=== PATIENT | male | born 1980 | race Caucasian/White ===

== ENCOUNTER 2017-11-09 19:51 | Emergency (ER) | payer OTHER, SELFPAY ==
[2017-11-09 19:53] VITALS: BP 117/72; PULSE 68; RESP 17; TEMP 36; O2SAT 95; BMI 29.0
--- NOTE | 2017-11-09 20:19 | ED.DCSUM_ITS ---
- ER Visit Summary Date of Service: 11/09/17 Chief Complaint: Occupational exposure History of Present Illness: The patient is a 36 M who presents for occupational exposure. 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 While in the surgery today he brushed against a forcep. He did not think anything of it at the time but later realized that he did have an abrasion on his left hand. No active bleeding. Currently he has no other complaints. Physical Examination: Afebrile vitals unremarkable Patient has a superficial abrasion of the left hand between the fourth and fifth digits no active bleeding Test Results: Hepatitis studies and HIV have been drawn. Emergency Department Course and Treatment: No exposure protocol including hepatitis and HIV testing was drawn. Treatment Plan: [] Disposition: Discharge Impression: Occupational exposure Hand abrasion This note was generated with [employer] dictation software. It may contain incorrect words, spelling, and punctuation that were not noted in review of the chart prior to signing ED Disposition - Plan for ED Patient: Chief Complaint: Occup Expose Referrals: Delonte Fink MD [Primary Care Provider] -
--- NOTE | 2017-11-09 20:19 | DCINST.ED_ITS ---
ED Disposition - Plan for ED Patient: Chief Complaint: Occup Expose Instructions: ED Body Fluid Exp HC Worker Referrals: Delonte Fink MD [Primary Care Provider] -
--- NOTE | 2017-11-09 20:20 | DCINST.ED_ITS ---
ED Disposition - Plan for ED Patient: Chief Complaint: Occup Expose Instructions: ED Body Fluid Exp HC Worker Referrals: Delonte Fink MD [Primary Care Provider] - [facility] [GROUP OF PHYSICIANS] -
[2017-11-09 22:14] LABS: HIV - WCH Non-Reactive (Nonreactive)
[2017-11-12 08:51] LABS: HEPATITIS B SURFACE AG Negative (Negative); Hep B Surface Antibodies EMP Reactive (.); Hep C Antibodies <0.1 s/co ratio (0.0-0.9)
== END 2017-11-09 20:36 | disposition home or self-care (01) ==
LOC: ED 20:28
PROVIDERS: Emergency Provider Emergency Medicine; Family Provider Family Medicine; PCP Family Medicine
DX: Z57.8 Occupational exposure to other risk factors (principal); S60.512A Abrasion of left hand, initial encounter
CPT/HCPCS: 36415; 86703; 86803; 87340; 99282

== ENCOUNTER 2018-11-09 17:26 | Emergency (ER) | payer OTHER, SELFPAY ==
[2018-11-09 17:26] VITALS: BP 133/83; PULSE 54; RESP 18; TEMP 36.8; O2SAT 97; BMI 28.2
--- NOTE | 2018-11-09 18:21 | ED.VISSUMM ---
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 He did not have an open wound. He did have gloves on. He thought there may be a weakening in the glove. There was no blood. He was not bleeding. He just wanted to be checked out. Labs were drawn of the patient and the patient that he was working on. He believes his employer will cover this and does not want to make this workers comp at this time. Physical Examination: Well-appearing male. Vital signs are stable afebrile. HEENT exam unremarkable. Lungs clear to auscultation. Heart regular rhythm no murmur. Moving all 4 extremities. His right thumb appears normal. There are no open wounds. Hands neurovascularly intact. Test Results: Screening labs were drawn for possible body fluid exposure. Emergency Department Course and Treatment: Patient does not need to be treated at this time I think is extremely low risk if he was even exposed. Treatment Plan: Follow-up with corporate care Disposition: Discharge Impression: Possible body fluid exposure This note was generated with [employer] dictation software. It may contain incorrect words, spelling, and punctuation that were not noted in review of the chart prior to signing ED Disposition - Plan for ED Patient: Referrals: Delonte Fink MD [Primary Care Provider] -
--- NOTE | 2018-11-09 18:23 | ED.DEP ---
ED Disposition - Plan for ED Patient: Disposition: Home or Assisted Living Instructions: ED Body Fluid Exp HC Worker Referrals: Delonte Fink MD [Primary Care Provider] - [facility] [GROUP OF PHYSICIANS] - As soon as possible
[2018-11-09 18:24] VITALS: PULSE 68; RESP 16; O2SAT 100
[2018-11-09 19:11] LABS: HIV - WCH Non-Reactive (Nonreactive)
[2018-11-12 15:21] LABS: HEPATITIS B SURFACE AG Negative (Negative); Hep B Surface Antibodies EMP Reactive (.); Hep C Antibodies 0.2 s/co ratio (0.0-0.9)
== END 2018-11-09 18:25 | disposition home or self-care (01) ==
PROVIDERS: Emergency Provider Emergency Medicine; Family Provider Family Medicine; PCP Family Medicine
DX: Z77.21 Contact with and (suspected) exposure to potentially hazardous body fluids (principal)
CPT/HCPCS: 86703; 86803; 87340; 99283